=== PATIENT | female | born 1945 | race Caucasian/White ===

== ENCOUNTER 2021-06-24 01:40 | Observation (INO) | payer MEDICARE ==
[2021-06-24] MEDS ORDERED: cloNIDine 0.1 MG TAB ONE (02:05)
[2021-06-24 02:22] LABS: #Basophils 0.1 10x3/uL (0.0-0.2); #Eosinphils 0.1 10x3/uL (0.0-0.5); #Monocytes 1.3 10x3/uL (0.0-1.1); #Neutrophils 14.5 10x3/uL (1.5-8.4); %Basophils 0.4 % (0.0-2.0); %Eosinophils 0.7 % (0.0-6.0); %Lymphocytes 11.5 % (18.0-47.0); %Monocytes 7.1 % (0.0-10.0); %Neutrophils 79.7 % (40.0-75.0); Hemoglobin 13.9 g/dL (12.0-15.5); Mean Corpuscular Hemoglobin 30.2 pg (27.0-33.0); Mean Corpuscular Volume 88.9 fl (81.6-98.3); Mean Platelet Volume 8.5 fl (7.4-10.4); Platelet Count 338 10x3/uL (150-450); RBC Distribution Width 12.1 % (11.5-14.5); White Blood Cell (WBC) Count 18.2 10x3/uL (3.5-10.5)
[2021-06-24 02:34] LABS: ALT (SGPT) 13 U/L (8-55); AST (SGOT) 18 U/L (5-34); Albumin 4.5 g/dL (3.4-4.8); Alkaline Phosphatase 79 U/L (40-110); Anion Gap 15 mmol/L (10-20); BUN (Urea Nitrogen) 9 mg/dL (9.8-20.1); Bilirubin, Total 0.6 mg/dL (0.2-1.2); Calc. Creatinine Clearance 0 mL/min (70-130); Calcium 9.4 mg/dL (7.8-10.44); Carbon Dioxide 22 mmol/L (23-31); Chloride 101 mmol/L (98-107); Globulin 3.6 g/dL (2.4-3.5); Glucose 112 mg/dL (83-110); Potassium 3.6 mmol/L (3.5-5.1); Protein, Total 8.1 g/dL (5.8-8.1); Sodium 134 mmol/L (136-145)
[2021-06-24] MEDS ORDERED: Nitroglycerin 0.4 MG TAB (25 Tab Bottle) SL PRN (03:47)
[2021-06-24] MEDS ORDERED: Aspirin Chewable 81 MG TAB ONE (03:52)
[2021-06-24] MEDS ORDERED: Acetaminophen 325 MG TAB PO PRN (03:55)
[2021-06-24] MEDS ORDERED: Clopidogrel Bisulfate 75 MG TAB PO SCH (04:30)
[2021-06-24] MEDS ORDERED: Potassium Chloride 20 MEQ TAB PO SCH (04:30)
[2021-06-24 05:16] LABS: Cardiac Risk 3.6 (Less than 4.5); Cholesterol 191 mg/dl (< 200 Desired); HDL Cholesterol 53 mg/dL (>60 Neg Risk); LDL Cholesterol, Calculated 126 mg/dL; Magnesium 2.2 mg/dL (1.6-2.6); Triglycerides 62 mg/dL (Less than 150)
[2021-06-24 05:17] VITALS: BMI 18.5
[2021-06-24 05:23] LABS: Troponin I Less than 0.010 ng/mL (< 0.028)
[2021-06-24] MEDS ORDERED: Nitroglycerin 2% Ointment 1 INCH/1 GM Packet TOP SCH (06:00)
[2021-06-24 07:43] LABS: #Basophils 0.1 10x3/uL (0.0-0.2); #Monocytes 0.8 10x3/uL (0.0-1.1); #Neutrophils 11.4 10x3/uL (1.5-8.4); %Basophils 0.4 % (0.0-2.0); %Eosinophils 0.1 % (0.0-6.0); %Lymphocytes 11.7 % (18.0-47.0); %Monocytes 5.5 % (0.0-10.0); %Neutrophils 81.9 % (40.0-75.0); Hemoglobin 12.3 g/dL (12.0-15.5); Mean Corpuscular HGB CONC 32.8 g/dL (32.0-36.0); Mean Corpuscular Hemoglobin 29.8 pg (27.0-33.0); Mean Corpuscular Volume 90.8 fl (81.6-98.3); Mean Platelet Volume 8.3 fl (7.4-10.4); Platelet Count 316 10x3/uL (150-450); RBC Distribution Width 12.2 % (11.5-14.5); Red Blood Cell (RBC) Count 4.13 10x6/uL (3.90-5.03); White Blood Cell (WBC) Count 13.9 10x3/uL (3.5-10.5)
[2021-06-24 08:11] LABS: Troponin I Less than 0.010 ng/mL (< 0.028)
[2021-06-24] MEDS ORDERED: Enoxaparin Sodium 30 MG/0.3 ML SYRINGE SC SCH (09:00)
[2021-06-24] MEDS ORDERED: Aspirin Chewable 81 MG TAB PO SCH (09:00)
[2021-06-24 13:25] VITALS: BP 148/67; TEMP 98.4
[2021-06-25] MEDS ORDERED: Clopidogrel Bisulfate 75 MG TAB PO SCH (09:00)
== END 2021-06-24 15:00 | disposition home or self-care (01) ==
LOC: CSHERS 01:40 → CSHTELE 04:34
PROVIDERS: ADMIT Family Medicine; ATTEND Nurse Practitioner Family
DX: R07.2 Precordial pain (principal); I20.9 Angina pectoris, unspecified; I10 Essential (primary) hypertension; K21.9 Gastro-esophageal reflux disease without esophagitis; D72.829 Elevated white blood cell count, unspecified; Z79.899 Other long term (current) drug therapy
CPT/HCPCS: 71045; 80053; 80061; 83735; 84484 ×2; 85025 ×2; 85379; 93005; 93306; 99285; G0378 ×2; 36415; 93010

== ENCOUNTER 2023-04-23 10:15 | Outpatient (CLI) | payer MEDICARE | END 2023-04-23 10:16 | disposition home or self-care (01) | LOC: CSHMAMMO 10:15 | PROVIDERS: ATTEND Physician Assistant | DX: Z12.31 Encounter for screening mammogram for malignant neoplasm of breast (principal) | CPT/HCPCS: 77063; 77067 ==

== ENCOUNTER 2024-04-24 13:13 | Outpatient (CLI) | payer MEDICARE | END 2024-04-24 13:14 | disposition home or self-care (01) | LOC: CSHMAMMO 13:13 | PROVIDERS: ATTEND Physician Assistant | DX: Z12.31 Encounter for screening mammogram for malignant neoplasm of breast (principal); Z80.3 Family history of malignant neoplasm of breast | CPT/HCPCS: 77063; 77067 ==